=== PATIENT | female | born 1940 | race Hispanic/Latino ===

== ENCOUNTER 2018-09-03 06:04 | Day surgery (SDC) | payer MEDICARE, BC ==
[2018-08-27 12:43] VITALS: BMI 31.4
[2018-09-03 06:59] LABS: BASO # 0.04 K/mm3 (0.0-2.0); BASO % 0.4 % (0.0-3.0); EOS # 0.3 (0.0-0.7); EOS % 2.7 % (1.5-5.0); GRAN # 7.16 (1.4-6.5); GRAN % 65.3 % (50.0-68.0); HEMOGLOBIN 11.9 g/dL (12.0-16.0); LYMPH # 2.7 (1.2-3.4); LYMPH % 24.5 % (22.0-35.0); MEAN CELL VOLUME 93.9 fl (80.0-105.0); MEAN CORPUSCULAR HEMOGLOBIN 30.2 pg (25.0-35.0); MEAN CORPUSCULAR HGB CONC 32.2 g/dl (31.0-37.0); MEAN PLATELET VOLUME 10.7 fl (7.0-11.0); MONO # 0.8 (0.1-0.6); MONO % 7.1 % (1.0-6.0); RBC 3.94 10^6/uL (3.5-6.1); RED CELL DISTRIBUTION WIDTH 15.1 % (11.5-14.5)
[2018-09-03 07:02] LABS: INR 1.01; PARTIAL THROMBOPLASTIN TIME 27.9 Seconds (25.1-36.5); PROTHROMBIN TIME 11.6 SECONDS (9.4-12.5)
[2018-09-03 07:09] LABS: CALCIUM 10.8 mg/dL (8.4-10.5)
[2018-09-03] MEDS ORDERED: Iodixanol 320 MG/ML 200 ML BOTTLE IV ONE (07:45)
[2018-09-03] MEDS ORDERED: Lidocaine 2% PF (10 ml) Amp ONE (07:46)
[2018-09-03] MEDS ORDERED: Phenylephrine 10 mg/ml Inj ONE (08:02)
[2018-09-03] MEDS ORDERED: Nitroglycerin 50mg in D5W 0 MG/0 ML BOTTLE IV ONE (08:03)
[2018-09-03] MEDS ORDERED: Iodixanol 320 MG/ML 100 ML BOTTLE IV ONE (08:03)
[2018-09-03] MEDS ORDERED: Iohexol 350mgl/ml 50 ML ONE (08:03)
[2018-09-03] MEDS ORDERED: Midazolam 2 MG/2 ML VIAL ONE (08:03)
[2018-09-03] MEDS ORDERED: Sodium Chloride 0.9% 1,000 ML IV SCH (09:00)
--- NOTE | 2018-09-03 09:11 | CPOSTOP ---
DATE: 09/03/2018 CARDIOVASCULAR LAB POSTPROCEDURE NOTE PHYSICIAN: Efrain Telles MD RN SCHOOL: [employer]. TYPE OF ANESTHESIA: Moderate conscious sedation. Total 2 mg of Versed and 100 of fentanyl given, periodically started 1 mg of Versed and 50 of fentanyl. PRE-PROCEDURE DIAGNOSES: Unstable angina, abnormal stress test. PROCEDURE PERFORMED: Left heart catheterization. FINDINGS: Distal LAD diffuse disease. FINAL DIAGNOSIS: Nonobstructive coronary artery disease. POST PROCEDURE CONDITION: The patient condition is stable. VASCULAR ACCESS SITE: Right femoral artery. CLOSURE DEVICE: Mynx. TOTAL RADIATION DOSE: 2535.18 milligray unit. TOTAL FLUORO TIME: 2.2 minutes. TOTAL Contrast used:40 cc Efrain Telles MD MTDLyric
--- NOTE | 2018-09-03 10:11 | CARD ---
APPROVED REPORT Date of service: 09/03/2018 EKG Measurement Heart [id number] CT [id number] <Conclusion> Normal sinus rhythm Left axis deviation, LAHB Anteroseptal infarct, age undetermined Prolonged QTc
[2018-09-03 11:34] VITALS: RESP 18
[2018-09-03 12:37] VITALS: O2SAT 99
[2018-09-03 14:15] VITALS: BP 122/70; PULSE 76; TEMP 98
--- NOTE | 2018-09-03 17:47 | CARD ---
APPROVED REPORT Date of service: 09/03/2018 Procedure(s) performed: Left Heart Catheterization HISTORY The patient is a 77 year-old female with a history of : most recent EF: 66%. (EF Method: RADIONUCLIDE), chronic lung disease, tobacco history() : The patient is a former smoker , hypertension , dyslipidemia , had abnormal stress test reza-septal ischemia. INDICATION The indication(s) include : positive stress test. CASE TECHNIQUE The patient was brought electively to the Cardiac Catheterization Laboratory in a fasting state and was prepped and draped in a sterile manner. The right femoral groin was infiltrated with 2% Lidocaine subcutaneous anesthesia. A 6 Fr x 11 cm Audrey sheath was inserted angiography was performed using coronary diagnostic catheters. The left coronary system was accessed and visualized with a Diagnostic , 5F JL 4 CATH DXT 100 CM catheter. The right coronary system was accessed and visualized with a Diagnostic ,5 Fr JR 4 catheter. The left ventricle was accessed and visualized with a 5F PIGTAIL 145 CATH DXT 110 CM catheter. Left ventricular/Aortic Valve gradient assessed on pullback. Left ventriculogram was performed in RAHMAN projection. Closure device was deployed with a 6 Fr / 7 Fr MynxGrip without any complications. The patient tolerated the procedure well and there were no complications associated with the procedure. Vessel Analysis The patient's coronary anatomy is right dominant. The left main coronary artery is a medium size vessel with intimal irregularities. The left main bifurcates to the left anterior descending and circumflex. The left anterior descending artery is a medium size vessel with diffuse calcification noted throughout this vessel and without significant stenosis. There is a 55% stenosis in the very distal segment, Diffusely diseased like a thread but no focal flow limiting stenosis.. The first diagonal branch is a medium size vessel without significant stenosis. The circumflex artery is a medium size vessel with intimal irregularities and without significant stenosis. The first obtuse marginal branch is a large size vessel with diffuse calcification noted throughout this vessel and without significant stenosis. The second obtuse marginal branch is a small size vessel with diffuse calcification noted throughout this vessel and without significant stenosis. The third obtuse marginal branch is a medium size vessel with diffuse calcification noted throughout this vessel and without significant stenosis. The right coronary artery is a medium size vessel with intimal irregularities and without significant stenosis. The right posterior descending artery is a medium size vessel with diffuse calcification noted throughout this vessel and without significant stenosis. The right posterolateral branch is a small size vessel with diffuse calcification noted throughout this vessel and without significant stenosis. Left Ventricle The left ventricle is Normal in size with Normal contractility. There was no cardiomyopathy. The left ventricular ejection fraction is estimated to be 55%. The left ventricular end diastolic pressure is 15 mmHg. There was no gradient across the aortic valve upon pullback. Conclusion Non Obstructive CAD limited to very Distal LAD, 55% Diffusely diseased like a thread, but no focal flow limiting stenosis noted. Heavy atherosclerotic [place] in all coronaries noted. Preserved LV FX, EF-55%, EDP-15 mmof Hg. Recommendations Aggressive Medical TherapyCardiac Risk Reduction Program Weight Loss Reduction Program Aggressive cvontrol of cholesterol with a goal is to keep LDL< 70 CC; Drs. Dillard / Aiden
--- NOTE | 2018-09-03 19:48 | HP ---
DATE OF EXAM: 09/03/2018 REASON FOR ADMISSION: Left heart cath, possible angioplasty, abnormal stress test. HISTORY OF PRESENT ILLNESS: This is a 77-year-old female with past medical history significant for hypertension, hyperlipidemia, COPD, obesity, diabetes, was having dizziness and workup was done by Dr. Wolfe, and found to be abnormal stress test. The patient was scheduled for elective cardiac cath and possible angioplasty. The patient was complaining about dizziness and chest pain. PAST MEDICAL HISTORY: Significant high-end obesity, hypertension, diabetes, hyperlipidemia, dizziness. ALLERGIES: NO KNOWN DRUG ALLERGY. SOCIAL HISTORY: Denies a history of alcohol abuse. CURRENT MEDICATIONS: The patient is taking Lipitor 40 mg daily, Femara 2.5 mg daily, metformin 500 mg daily, metoprolol succinate 50 mg once a day, baby aspirin 81 mg daily, Singulair 10 mg daily, allopurinol 100 mg daily. PHYSICAL EXAMINATION: VITAL SIGNS: Height 5 feet, weight 78 kg, body mass index 30 kg/m2. Temperature afebrile, heart rate is 80, blood pressure 130/80. HEENT: PERRLA intact. NECK: Supple. No carotid bruit. No thyromegaly. CHEST: Clear to auscultation. CARDIOPULMONARY: S1, S2 regular. ABDOMEN: Soft. EXTREMITIES: Clubbing and cyanosis are negative. LABORATORY/DIAGNOSTIC DATA: Recent cardiac workup as follows: The patient had a stress test dated 08/27/2018 that showed abnormal myocardial perfusion study, partially reversible anterior defect suspicious for ischemia; however, the changing position of breast cannot be ruled out. On 08/27/2018, patient had an echo done that showed a normal chamber size. LV showed mild hypertrophy. Ejection fraction was 59%. Mild mitral regurgitation, mild tricuspid regurgitation, RV systolic pressure 25, trace aortic regurgitation. Blood workup as follows: WBC 11, hemoglobin 11.9, hematocrit 37.0, platelet count 362. Coagulation profile: INR 1.01, PT 11.6, PTT 27.9. CHEMISTRY: Shows sodium 137, potassium 3.8, chloride of 100, carbon dioxide 30, anion gap of 11, BUN 43, creatinine 1.4. IMPRESSION: A 77-year-old female with past medical history of diabetes, hypertension, hyperlipidemia, multiple history of coronary heart disease, underwent a stress test that was abnormal. The patient is scheduled for a cardiac catheterization for anteroseptal, anterolateral, apical ischemia. RECOMMENDATIONS: Risks, benefits, and alternatives were discussed with the patient, and the patient agreed to proceed for cardiac catheterization. Further recommendation after cardiac catheterization, and we will follow with you. The patient will load with aspirin and Plavix. The patient was accompanied with her . Thank you, Dr. Dillard, for providing us the opportunity in taking care of the patient, Xiomy Unger. Efrain Telles MD
== END 2018-09-03 14:10 | disposition home or self-care (01) ==
LOC: CATH 06:04
PROVIDERS: ATTEND Internal Medicine Cardiovascular Disease
DX: I25.110 Atherosclerotic heart disease of native coronary artery with unstable angina pectoris (principal); R94.39 Abnormal result of other cardiovascular function study; E11.9 Type 2 diabetes mellitus without complications; E78.5 Hyperlipidemia, unspecified; I10 Essential (primary) hypertension; J44.9 Chronic obstructive pulmonary disease, unspecified; E66.9 Obesity, unspecified; Z79.84 Long term (current) use of oral hypoglycemic drugs; Z79.82 Long term (current) use of aspirin; Z79.899 Other long term (current) drug therapy; Z87.891 Personal history of nicotine dependence; Z68.30 Body mass index [BMI] 30.0-30.9, adult
CPT/HCPCS: 36415; 80048; 85025; 85610; 85730; 86850; 86900; 93005; 93458; 99152; C1760; C1769; C1887; C2629; J1644; J2250; J3010; J7030; Q9966

== ENCOUNTER 2019-02-04 08:56 | Outpatient (CLI) | payer MEDICARE, BC | END 2019-02-04 08:57 | disposition home or self-care (01) | LOC: RAD 08:56 ==

== ENCOUNTER 2019-03-13 10:25 | Outpatient (CLI) | payer MEDICARE, BC | END 2019-03-13 10:26 | disposition home or self-care (01) | LOC: RAD 10:25 ==